=== PATIENT | female | born 1970 | race Caucasian/White ===

== ENCOUNTER → 2018-06-30 07:40 | Outpatient (CLI) | payer OTHER, SELFPAY ==
--- NOTE | 2018-06-30 07:45 | RAD_ITS ---
STUDY: X-RAY - RIGHT HAND REASON FOR EXAM: Female, 47 years old. Pain at the bases of the thumb with deformity following a lifting injury. TECHNIQUE: 3 view(s) of the hand. COMPARISON: Comparison is made with prior study dated July 09, 2014. FINDINGS: Normal radiocarpal articulation. Normal distal radioulnar joint. Normal visualized carpal bones. Normal carpal articulations There is degenerative arthrosis of the carpometacarpal articulation of the thumb with lateral subluxation of the first metacarpus. Normal second through fifth carpometacarpal joints. Avulsion fracture at the base of the first metacarpal. Normal metacarpophalangeal joint of the thumb. Normal interphalangeal joint of the thumb. Normal proximal and distal phalanges of the thumb. Normal metacarpophalangeal joints of the second through fifth fingers. Normal proximal and distal interphalangeal joints of the second through fifth fingers. Normal phalanges of the second through fifth fingers. Soft tissue swelling RAD/Hand Min 3 Views IMPRESSION: Nondisplaced fracture at the base of the first metacarpal. Degenerative changes. Electronically Signed: Iftikhar Marcum, at 9:04 EDT , Service support ,
== END ==
PROVIDERS: Family Provider Family Medicine; PCP Family Medicine; Referring Provider Physician Assistant; Visit Provider Physician Assistant
DX: M79.644 Pain in right finger(s) (principal)
CPT/HCPCS: 73130

== ENCOUNTER 2019-05-02 10:49 | Emergency (ER) | payer OTHER, SELFPAY ==
[2019-05-02 10:51] VITALS: BP 148/75; PULSE 86; RESP 18; TEMP 36.6; O2SAT 99; BMI 26.6
--- NOTE | 2019-05-02 11:01 | RAD_ITS ---
STUDY: X-RAY - LEFT ANKLE REASON FOR EXAM: Female, 48 years old. FELL LAST NIGHT -- LATERAL PAIN TECHNIQUE: 3 view(s) of the ankle. COMPARISON: None. FINDINGS: Normal visualized distal tibia and fibula. Normal medial and lateral malleoli. Normal tibiotalar articulation and ankle mortise. Normal visualized talus and calcaneus. The visualized subtalar, talonavicular, calcaneocuboid and tarsal articulations are normal. The soft tissue structures are unremarkable. RAD/Ankle min 3 Views IMPRESSION: Normal x-ray examination of the ankle. Electronically Signed: Yrn Reyna DO at 11:47 EST Tel , Service support ,
--- NOTE | 2019-05-02 11:01 | RAD_ITS ---
STUDY: X-RAY - LEFT KNEE REASON FOR EXAM: Female, 48 years old. FELL LAST NIGHT -- LATERAL PAIN TECHNIQUE: 4 view(s) of the knee. COMPARISON: None. FINDINGS: Status post left knee replacement. No evidence of acute fracture or dislocation. Hardware appears intact. No significant joint effusion RAD/Knee 4 or More Views IMPRESSION: No acute finding Electronically Signed: Yrn Reyna DO at 11:49 EST Tel , Service support ,
--- NOTE | 2019-05-02 11:01 | RAD_ITS ---
STUDY: X-RAY - LEFT FOOT CLINICAL: Female, 48 years old. FELL LAST NIGHT -- LATERAL PAIN TECHNIQUE: 3 view(s) of the foot. COMPARISON: None. FINDINGS: Normal talus, calcaneus, and tarsal bones. Normal visualized subtalar, talonavicular, calcaneocuboid, tarsal and tarsometatarsal articulations. Normal metatarsi. Normal metatarsophalangeal joint of the great toe. Normal tibial and fibular sesamoid bones. Normal interphalangeal joint of the great toe. Normal phalanges of the great toe. Normal second through fifth metatarsophalangeal joints. Normal interphalangeal joints and phalanges of the lesser toes. The soft tissue structures are unremarkable. RAD/Foot min 3 Views IMPRESSION: Normal x-ray examination of the foot. Electronically Signed: Yrn Reyna DO at 11:48 EST Tel , Service support ,
--- NOTE | 2019-05-02 11:03 | ED.VIS.GEN ---
History of Present Illness Chief Complaint: Lower Extremity Injury Informant: Patient Onset: Yesterday Context: Sudden Onset Timing: Continuous Current Severity: Moderate Maximum Severity: Moderate Narrative: Patient is an otherwise healthy female who presents to the emergency department with lower extremity injury. Patient states that last night, she was ambulating out of her house. She stepped on a mat that had ice. She slipped. She landed with her left knee twisted underneath her and felt something pop. She landed on her left foot. She has been unable to bear weight on the foot since then. She does have history of prior total left knee replacement. She did not strike her head. She denies loss of consciousness. The patient has been dealing with some ankle instability since last year. She is actually scheduled for an outpatient MRI on Saturday. Prior similar symptoms: No Recent Illness/Hospitalization: No Past Medical History - Allergies and Home Meds Allergies/Adverse Reactions: Allergies dextromethorphan [From Mucinex DM] Allergy (Verified 05/02/19 10:55) Chest tightness guaifenesin Allergy (Verified 05/02/19 10:55) Chest tightness Penicillins Allergy (Verified 09/16/13 21:16) Angioedema shellfish derived Allergy (Verified 05/02/19 10:55) Angioedema Sulfa (Sulfonamide Antibiotics) Allergy (Verified 03/17/14 10:52) Itching SHRIMP Allergy (Uncoded 09/16/13 21:16) Angioedema Primary Care Physician: [facility] Doctor,Out of [NON-STAFF] - Prior records reviewed: Yes Past Medical History: None Surgical History: total knee arthroplasty Lives: With Family Smoking Status: Unknown if ever smoked Review of Systems General: Denies: Chills, Fever, Sweats Eyes: Denies: Visual changes - bilaterally, Diplopia ENT: Denies: Rhinorrhea, Sore throat Cardiovascular: Denies: Chest pain, Palpitations Respiratory: Denies: Dyspnea, Cough, Dyspnea on exertion Gastrointestinal: Denies: Abdominal pain, Nausea, Vomiting, Diarrhea, Melena, Hematochezia Genitourinary: Denies: Dysuria, Hematuria, Frequency Musculoskeletal: Denies: Back pain, Extremity Pain Skin: Denies: Rash, Wounds Neurological: Denies: Headache, Weakness, Numbness Physical Exam Vital Signs/Narrative: Vital Signs Temp Pulse Resp BP Pulse Ox 05/02/19 10:51 98 F 86 18 148/75 H 99 Inital Vital Signs reviewed: Yes General: Well nourished, Well developed, No Acute Distress Head: Normocephalic, Atraumatic Eyes: Perrl, EOMI ENT: Moist mucous membranes, No rhinorrhea Neck: Supple, Nontender Cardiovascular: Regular rate, Regular rhythm, No murmurs Respiratory: No distress, CTA bilaterally, Chest nontender Abdomen: Soft, Nontender, Nondistended, Normal bowel sounds Back: Nontender, Normal Inspection Extremities: No edema, Tenderness - No gross laxity of her knee. Extension preserved. Tenderness over the left lateral malleolus and head of the fifth metatarsal. Normal pulses. Carlson negative. Skin: Normal color, No rash Neurological: Alert, Oriented x3, Cranial nerves II-XII grossly intact, Normal Strength, Normal Sensation Psychological: Normal affect, Normal Mood Diagnostic/Tx/Re-eval Clinical Impression(s) from Imaging Studies Ankle X-Ray 05/02/19 11:01 IMPRESSION: Normal x-ray examination of the ankle. Electronically Signed: Yrn Reyna DO at 11:47 EST Tel , Service support , Foot X-Ray 05/02/19 11:01 IMPRESSION: Normal x-ray examination of the foot. Electronically Signed: Yrn Reyna DO at 11:48 EST Tel , Service support , Knee X-Ray 05/02/19 11:01 IMPRESSION: No acute finding Electronically Signed: Yrn Reyna DO at 11:49 EST Tel , Service support , - Medical Decision Making The patient presents after mechanical fall. She has some pain in the knee. Her extension is preserved. Pulses are normal. X-rays were obtained of the knee, ankle, and foot. There was no evidence of acute fracture. I do feel that her symptoms are likely secondary to ligamentous strain. She does have outpatient MRI scheduled for her ankle which I feel is important especially given the new injury. She is placed in a boot orthosis and will continue her crutches. She will be given a short course of analgesics and will follow-up with her orthopedist. Impression 1. Left knee sprain 2. Left ankle sprain ED Disposition - Plan for ED Patient: Instructions: Sprain, Ankle, with X-Ray, Knee Sprain Prescriptions: Oxycodone HCl/Acetaminophen [Percocet 5/325] 1 tab PO Q6H PRN PRN 3 Days #12 tab PRN Reason: Pain Prescription Printed Ondansetron [Zofran Odt] 4 mg PO Q8H PRN PRN #10 tab PRN Reason: Nausea Prescription Printed Referrals: [facility] Doctor,Out of [NON-STAFF] -
[2019-05-02] MEDS: oxyCODONE 5 MG Tablet PO (11:10)
[2019-05-02] MEDS: Ondansetron ODT 4 MG Tablet PO (11:10)
[2019-05-02 12:13] VITALS: BP 105/59; PULSE 75; RESP 18; O2SAT 98
== END 2019-05-02 12:15 | disposition home or self-care (01) ==
LOC: ED 11:37
PROVIDERS: Emergency Provider Emergency Medicine
DX: S83.92XA Sprain of unspecified site of left knee, initial encounter (principal); S93.402A Sprain of unspecified ligament of left ankle, initial encounter; W00.0XXA Fall on same level due to ice and snow, initial encounter
CPT/HCPCS: 73564; 73610; 73630; 99283

== ENCOUNTER → 2019-05-05 16:54 | Outpatient (CLI) | payer SELFPAY ==
[2019-05-02 10:51] VITALS: BMI 26.6
--- NOTE | 2019-05-05 17:30 | MRI_ITS ---
STUDY: MRI LEFT ANKLE WITHOUT CONTRAST REASON FOR EXAM: Left ankle pain for one year, new injury 4 days ago. TECHNIQUE: Standardized fat and water weighted pulse sequences were obtained in all 3 orthogonal planes. COMPARISON: Radiographs 05/02/2019. FINDINGS: There is mild edema in the lateral subcutis adipose space. There is a very small volume of fluid in the retromalleolar and submalleolar posterior tibialis tendon sheath (T2 axial images 5, 6, 13, 14). The posterior tibialis tendon is morphologically normal. Normal flexor digitorum longus tendon. Normal flexor hallucis longus tendon. There is a very small volume of fluid in the retromalleolar peroneal tendon sheath (T2 axial images 12-14). The peroneus longus and brevis tendons are morphologically normal. Normal tibialis anterior tendon. Normal extensor hallucis longus tendon. There is a small volume of fluid in the extensor digitorum longus tendon sheath (T2 axial images 9-13). The extensor digitorum longus tendons are morphologically normal. Normal Achilles tendon and teno-osseous insertion. Normal plantar fascia. Normal plantar calcaneal tubercles. Normal intrinsic muscles of the rearfoot. Normal distal tibiofibular syndesmotic ligamentous complex. Normal lateral ligamentous complex. There is a small cyst in the sinus tarsi (inversion recovery sagittal image 17) measuring 1 cm in AP dimension. Normal deltoid ligamentous complexes. Normal plantar calcaneonavicular (spring) ligament. There is a small tibiotalar joint effusion (inversion recovery sagittal images 15-17). Normal talar dome. There is a small posterior subtalar joint effusion (inversion recovery sagittal images 13-16). There is arthrosis of the middle subtalar articulation with chondral thinning and subchondral cystic change/bone edema (inversion recovery sagittal images 9-11). Normal talonavicular articulation. Normal calcaneocuboid articulation. Normal navicular-cuneiform articulations. MRI/Lower Ext Joint Only (Routine) IMPRESSION: Mild extensor digitorum longus tenosynovitis. Very mild posterior tibialis tenosynovitis. Very mild peroneal tenosynovitis. Arthrosis of the middle subtalar articulation. Small tibiotalar and posterior subtalar joint effusions. Small cyst in the sinus tarsi. Electronically Signed: Daniel Abreu MD at 10:06 EST Tel , Service support ,
== END ==
PROVIDERS: Referring Provider Podiatrist; Visit Provider Podiatrist
DX: S93.402A Sprain of unspecified ligament of left ankle, initial encounter (principal)
CPT/HCPCS: 73721

== ENCOUNTER → 2019-09-23 15:39 | Outpatient (CLI) | payer OTHER, SELFPAY ==
--- NOTE | 2019-09-23 15:46 | RAD_ITS ---
STUDY: X-RAY - LEFT ANKLE REASON FOR EXAM: Female, 48 years old. Left ankle pain. Unable to bear weight. TECHNIQUE: 3 view(s) of the ankle. COMPARISON: None. FINDINGS: Normal visualized distal tibia and fibula. Normal medial and lateral malleoli. Normal tibiotalar articulation and ankle mortise. Normal visualized talus and calcaneus. The visualized subtalar, talonavicular, calcaneocuboid and tarsal articulations are normal. The soft tissue structures are unremarkable. RAD/Ankle min 3 Views IMPRESSION: No visualized fracture or dislocation. Electronically Signed: Anthony Muñiz DO at 21:37 EDT Tel [phone], Service support ,
== END ==
LOC: HPRAD 15:43
PROVIDERS: Referring Provider Podiatrist; Visit Provider Podiatrist
DX: S93.402A Sprain of unspecified ligament of left ankle, initial encounter (principal)
CPT/HCPCS: 73610

== ENCOUNTER → 2019-09-29 12:34 | Outpatient (CLI) | payer SELFPAY ==
--- NOTE | 2019-09-29 13:00 | MRI_ITS ---
STUDY: MRI LEFT ANKLE WITHOUT CONTRAST REASON FOR EXAM: Female, 48 years old. LEFT ankle anterior pain, ganglion TECHNIQUE: Standardized fat and water weighted pulse sequences were obtained in all 3 orthogonal planes. COMPARISON: None. FINDINGS: Normal subcutis adipose space. There is tenosynovitis of the posterior tibialis tendon sheath with an intrinsic normal tendon. Normal flexor digitorum longus tendon. Normal flexor hallucis longus tendon. Normal peroneus longus and brevis tendons. Normal tibialis anterior tendon. Normal extensor hallucis longus tendon. Normal extensor digitorum longus tendons. Normal Achilles tendon and teno-osseous insertion. Normal plantar fascia. Normal plantar calcaneal tubercles. Normal intrinsic muscles of the rearfoot. Normal distal tibiofibular syndesmotic ligamentous complex. There is scarring with thickening of the anterior talofibular ligament consistent with a remote sprain. 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 1 x 3 cm multiloculated fluid collection laterally consistent with a inferior extensor retinaculum stem ligament bursal cyst. Normal deltoid ligamentous complexes. Normal plantar calcaneonavicular (spring) ligament. There is a joint effusion of the tibiotalar articulation with capsular distension. Normal talar dome. Moderate anterior subtalar joint arthrosis with erosions and subchondral edema. Normal talonavicular articulation. Normal calcaneocuboid articulation. Normal navicular-cuneiform articulations. MRI/Lower Ext Joint Only (Routine) IMPRESSION: 1. 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 2. Moderate anterior subtalar joint arthrosis with the erosions and subchondral edema. 3. Small tibiotalar joint effusion. 4. Thickening of the anterior talofibular ligament consistent with prior injury. 5. Mild posterior tibial tendon tenosynovitis. Electronically Signed: Dom Callahan MD at 15:35 EDT Tel , Service support ,
== END ==
PROVIDERS: Referring Provider Podiatrist; Visit Provider Podiatrist
DX: M67.40 Ganglion, unspecified site (principal)
CPT/HCPCS: 73721